=== PATIENT | female | born 2000 | race Two or more races ===

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

== ENCOUNTER 2022-04-10 07:42 | Emergency (ER) | payer MEDICAID ==
[~2022-04-10] VITALS: Ht 160 cm; Wt 85.0 kg
[2022-04-10 07:44] VITALS: BP 129/80
[2022-04-10] MEDS ORDERED: fluconazole 100mg tablet PO ONE (08:55)
== END 2022-04-10 09:34 | disposition home or self-care (01) ==
LOC: ER 07:43
DX: B37.31 Acute candidiasis of vulva and vagina (principal); R10.2 Pelvic and perineal pain; Z98.890 Other specified postprocedural states; Z79.899 Other long term (current) drug therapy
CPT/HCPCS: 99283

== ENCOUNTER 2024-12-30 18:50 | Emergency (ER) | payer MEDICAID, OTHER ==
[~2024-12-30] VITALS: Ht 170.2 cm; Wt 68.1 kg
[2024-12-30 18:57] VITALS: BP 146/72; PULSE 68; RESP 15; O2SAT 99
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
[2024-12-30 19:32] LABS: LEUKOCYTE ESTERASE ,URINE NEGATIVE (Neg); NITRITES, URINE NEGATIVE (Neg); OCCULT BLOOD,URINE LARGE (Neg)
[2024-12-30 19:33] LABS: UA COLLECTION TYPE CLN CATCH MIDSTREAM
[2024-12-30 19:40] LABS: MUCUS STRANDS FEW /LPF (Neg); SQUAMOUS EPITHELIAL CELL,UR MODERATE /LPF (FEW)
[2024-12-30 19:44] LABS: MEAN PLATELET VOLUME 8.2 FL (7.4-10.4); RED CELL DISTRIBUTION WIDTH 15.2 % (11.5-14.5)
[2024-12-30 19:56] LABS: CREATININE 0.75 MG/DL (0.40-0.90); TOTAL CARBON DIOXIDE 26.3 MMOL/L (24-32); eCRCL 112 ML/MIN; eGFR > 90 ML/MIN
[2024-12-30] MEDS ORDERED: CefTRIAXone 1000mg IM Kit (w/lidocaine diluent) IM ONE (20:50)
[2024-12-30] MEDS: normal saline 1000ml 1,000 ML IV ONE (21:00)
[2024-12-30] MEDS: POTASSIUM CHLORIDE 20 MEQ/15 ML oral solution PO SCH (21:00)
[2024-12-30] MEDS ORDERED: CEPH-585 PO (21:16)
[2024-12-30] MEDS ORDERED: CYCL-1 PO (21:17)
[2024-12-30] MEDS: CefTRIAXone/D5W-Rocephin 1gm 50 ML IV ONE (21:19)
[2024-12-30 21:28] VITALS: TEMP 97.6
== END 2024-12-30 22:25 | disposition home or self-care (01) ==
LOC: ER 18:51
DX: T14.8XXA Other injury of unspecified body region, initial encounter (principal); R10.9 Unspecified abdominal pain; Y04.2XXA Assault by strike against or bumped into by another person, initial encounter; Y93.89 Activity, other specified; Y92.89 Other specified places as the place of occurrence of the external cause; Y99.0 Civilian activity done for income or pay
CPT/HCPCS: 36415; 80053; 81001; 85025; 96365; 99284; J0696; J7030